=== PATIENT | female | born 2000 | race African-American/Black ===

== ENCOUNTER 2024-08-17 18:55 | Emergency (ER) | payer MEDICAID, SELFPAY ==
[2024-08-17] VITALS (7 sets, daily range): BP systolic 103–132; BP diastolic 54–88; PULSE 76–100; RESP 13–22; TEMP 36.7–37.1; O2SAT 99–100
--- NOTE | ~2024-08-17 | XR_ITS ---
[id number] Ordering provider: Spencer Baldwin MD History: . post reduction . Comparison: None. FINDINGS/impression: Status post reduction of the left knee with good alignment of the bones. Slightl y lateral and superior displacement of the patella is seen. No definite fractures seen. Reviewed, dictated and finalized at location A.
--- NOTE | ~2024-08-17 | XR_ITS ---
XR knee LT 3V Ordering provider: Spencer Baldwin MD History: . knee injury PLAYING [employer] FOOTBALL . Comparison: None. FINDINGS: BONES: Left knee Anterior and lateral dislocation of the patella, tibia and fibula compared to the di stal femur. Overlap of bones is seen between the femur and tibia and fibula. IMPRESSION: Dislocation of the left knee as described above with no definite fractures. Overlap of bones is seen. Reviewed, dictated and finalized at location A. IMPRESSION: Dislocation of the left knee as described above with no definite fractures. Ove rlap of bones is seen.
--- NOTE | 2024-08-17 19:04 | ED.GENADULT ---
HPI - General Adult General Chief complaint: Extremity Injury, Lower Stated complaint: possible L knee dislocation Time Seen by Provider: 08/17/24 18:57 History of Present Illness HPI narrative: Year old female presents emergency department for evaluation for left knee pain. Patient was playing football twisted and injured her left knee. Patient denies any other pain or injury. Patient arrived by EMS. Patient was treated with 100 mcg fentanyl but still arrived and significant discomfort. Deformity to left knee Related Data Allergies Allergy/AdvReac Type Severity Reaction Status Date / Time No Known Allergies Allergy Verified 08/17/24 20:19 Review of Systems Review of Systems: All systems reviewed & are unremarkable except as noted in HPI and below Exam Narrative: APPEARANCE: Well appearing, no pain, no distress, well-nourished. HEAD: normocephalic, atraumatic. EYES: PERRLA/EOMI, conjunctivae clear. NOSE: Normal no drainage EARS:TMS clear with good light reflex. THROAT: Pharynx clear, no exudate. NECK: Supple. No adenopathy, no masses. RESPIRATORY: Airway patent, respirations nonlabored. Clear to auscultation bilaterally, no rales, rhonchi, wheezing. CARDIOVASCULAR: Regular rate and rhythm without murmurs rubs or gallops. ABDOMINAL: Soft, nontender, nondistended, normal bowel sounds MUSCULOSKELETAL: Left knee deformity, neurovascularly intact 90 people NEURO: Alert. Cranial nerves II through XII intact. Grossly intact SKIN: Warm, dry. Normal Color Course Course Emergency Course: Patient was transferred to [facility] for high level of care Vital Signs Vital signs: Vital Signs Temperature 98.2 F 08/17/24 19:10 Pulse Rate 76 08/17/24 19:10 Respiratory Rate 20 08/17/24 19:10 Blood Pressure 132/88 08/17/24 19:10 Pulse Oximetry 99 08/17/24 19:10 Oxygen Delivery Room Air 08/17/24 19:10 Temperature 98.0 F 08/17/24 20:45 Pulse Rate 89 08/17/24 20:45 Respiratory Rate 22 H 08/17/24 20:45 Blood Pressure 103/77 08/17/24 20:45 Pulse Oximetry 100 08/17/24 20:45 Oxygen Delivery Nasal Cannula 08/17/24 20:45 Oxygen Flow Rate 2 08/17/24 20:45 Procedures Orthopedic Joint Reduction Joint #1: Time Out Performed: Yes Side: left Joint Reduction Location: knee/patella (knee) Analgesia: procedural sedation Pre-Procedure Neuro Vascular Exam: normal Shoulder Technique Used (if applicable): traction/counter-traction Technique used: traction/counter-traction Post-reduction neuro exam: intact Post-reduction vascular: intact Post Reduction X-Ray Obtained: Yes Post Reduction X-Ray Results: reduced Splint Applied: Yes Patient Tolerated Procedure: well and no complications Procedural Sedation Procedural Sedation #1: Presedation Evaluation: APPEARANCE: Well appearing, no pain, no distress, well-nourished. HEAD: normocephalic, atraumatic. EYES: PERRLA/EOMI, conjunctivae clear. NOSE: Normal no drainage EARS:TMS clear with good light reflex. THROAT: Pharynx clear, no exudate. NECK: Supple. No adenopathy, no masses. RESPIRATORY: Airway patent, respirations nonlabored. Clear to auscultation bilaterally, no rales, rhonchi, wheezing. CARDIOVASCULAR: Regular rate and rhythm without murmurs rubs or gallops. ABDOMINAL: Soft, nontender, nondistended, normal bowel sounds MUSCULOSKELETAL: Moves all extremities. Strength/ROM intact, No edema, No calf tenderness. NEURO: Alert. Cranial nerves II through XII intact. grossly intact SKIN: Warm, dry. Normal Color Procedure: procedural sedation using propofol for reduction of an anterior dislocation of the left knee Provider Performed: sedation and procedure Time Out: time-out was performed Informed Consent Obtained: yes Equipment in Room: bag and mask, capnography, carpentry specialist, crash cart, oxygen, pulse oximeter and suction
[2024-08-17] MEDS: HYDROmorphone HCL INJ (*CRX) 1 MG/ML SYR IV PUSH (19:08)
--- NOTE | 2024-08-17 20:02 | PC.NURSE ---
60mg of propofol given IV push by Dr Baldwin at 1999.
[2024-08-17] MEDS: SODIUM CHLORIDE 0.9% IV 1,000 ML 999 ML (20:18)
== END 2024-08-17 21:24 | disposition short-term general hospital (02) ==
LOC: ANHED 20:36
PROVIDERS: Emergency Provider Emergency Medicine
DX: S83.015A Lateral dislocation of left patella, initial encounter (principal); S83.095A Other dislocation of left patella, initial encounter; X50.9XXA Other and unspecified overexertion or strenuous movements or postures, initial encounter; Y93.61 Activity, american tackle football
CPT/HCPCS: 27560; 73560; 73562; 96374; 99285; J1170; J7030